=== PATIENT | male | born 1955 | race Caucasian/White ===

== ENCOUNTER → 2016-08-06 | Outpatient (CLI) | payer BC ==
[~2016-08-06] MED LIST: Metoprolol Tartrate 25 MG Tab PO SCH
[2016-08-06 10:43] VITALS: BP 128/86
--- NOTE | 2016-08-06 20:30 | PCM.PRNOTE ---
- Free Text/Narrative Note: Exercise MIBI Indication CP Sestamibi Tc99 25 MCi was given at the peak HR Patient was brought to the stress test lab in postabsorptive state verbal and paper consent was obtained from patient Vital signs at resting state blood pressure of 110/82 with a heart rate of 75 EKG shows afib [address] depression 0.5 mm Maximal heart rate of 170 and target heart rate is 133 Patient reached the target heart rate, completed stage II Darius protocol Peak blood pressure is 122/88 Total exercise time of 4.[address] depression on V4-V6 like 1mm at peak heart rate with occasional PVCs. the test was terminated due to reaching target HR, and ST changes. METS 7 complaining of slight chest pain which was spontaneous resolved Impression Normal hemodynamics, normal chronotropic, poor exercise capacity, equivocal EKG for ischemia Plan Nuclear portion pending
--- NOTE | 2016-08-07 15:49 | NM ---
EXAMINATION: Nuclear medicine myocardial perfusion study with exercise stress test. HISTORY: Hypercholesterolemia. PROCEDURE: Patient exercised according to Darius protocol for 4 minutes and 54 seconds and achieved maximal hear t rate of 170 beats per minute. Adequate exercise. Following intravenous administration of 27.5 mCi of technetium 99m sestamibi, stress SPECT images i ncluding gating imaging was performed. FINDINGS: Stress myocardial SPECT images demonstrates a small area of moderately decreased perfusion at the ap ex and a moderate to large area of mildly decreased perfusion along the inferoseptal wall. Review of gated images demonstrates generalized hypokinesis the left ventricular ejection fraction i s 19 %. The left ventricular chamber size is normal. IMPRESSION: 1. Moderately decreased perfusion at the apex mildly along the inferoseptal wall. Correlation with r est images recommended. 2. Normal ventricular chamber size with: Hypokinesis and an ejection fraction of 19 %.
== END ==
LOC: MW.NM 08:06
PROVIDERS: ATTEND Internal Medicine
DX: E78.00 Pure hypercholesterolemia, unspecified (principal)
CPT/HCPCS: 78451; 93017; A9270; A9500

== ENCOUNTER → 2016-08-15 | Outpatient (CLI) | payer BC ==
--- NOTE | 2016-08-20 11:17 | NM ---
Addendum: Additional imaging was obtained at rest following the administration of 25.3 mCi of Tech 99M labeled sestamibi. FINDINGS/IMPRESSION: The perfusion pattern at rest is similar to the stress imaging. There is no definite evidence of reversible perfusion to suggest myocardial ischemia. However the ejection fraction however is 43% compared to 20% at stress. The TID is also elevated at 1.5. This may suggest underlying multivessel disease. EXAMINATION: Nuclear medicine myocardial perfusion study with exercise stress test. HISTORY: Hypercholesterolemia. PROCEDURE: Patient exercised according to Darius protocol for 4 minutes and 54 seconds and achieved maximal heart rate of 170 beats per minute. Adequate exercise. Following intravenous administration of 27.5 mCi of technetium 99m sestamibi, stress SPECT images including gating imaging was performed. FINDINGS: Stress myocardial SPECT images demonstrates a small area of moderately decreased perfusion at the apex and a moderate to large area of mildly decreased perfusion along the inferoseptal wall. Review of gated images demonstrates generalized hypokinesis the left ventricular ejection fraction is 19 %. The left ventricular chamber size is normal. IMPRESSION: 1. Moderately decreased perfusion at the apex mildly along the inferoseptal wall. Correlation with rest images recommended. 2. Normal ventricular chamber size with: Hypokinesis and an ejection fraction of 19 %. Dictated by: Gilmar Gomes MD 08/07/16 at 1600 , 1505 , 1505 Doc Number: [id number] Copies To: Aamir Last MD; Miguelito Cunha MD~ [facility]
== END ==
LOC: MW.NM 10:41
PROVIDERS: ATTEND Internal Medicine
DX: E78.00 Pure hypercholesterolemia, unspecified (principal)
CPT/HCPCS: 78451; A9500

== ENCOUNTER → 2016-08-20 | Outpatient (CLI) | payer BC ==
[2016-08-20 10:52] LABS: CHLORIDE,CL 106 mmol/L (98-110); SODIUM,NA 140 mmol/L (136-146)
== END ==
LOC: MW.CHIM 09:57
PROVIDERS: ATTEND Internal Medicine
DX: I48.91 Unspecified atrial fibrillation (principal)
CPT/HCPCS: 36415; 80048; 83880; 85025; 85610

== ENCOUNTER 2021-12-17 10:07 | Inpatient (IN) | payer MEDICARE, OTHER ==
[2021-12-17] MEDS ORDERED: Acetaminophen 325 MG Tab PO PRN (10:17)
[2021-12-17] MEDS ORDERED: Sodium Chloride 0.9% 2.5 ML Syringe FLUSH PRN (10:17)
[2021-12-17] MEDS ORDERED: Sodium Chloride 0.9% 10 ML Syringe FLUSH PRN (10:17)
[2021-12-17] MEDS ORDERED: Ondansetron 4 MG/2 ML SDV IVPUSH PRN (10:17)
[2021-12-17] MEDS ORDERED: Docusate Sodium 100 MG Cap PO PRN (10:17)
[2021-12-17] MEDS ORDERED: Magnesium Sulfate/Water 4 GM in Premix Bag 1 BAG IV ONE (11:24)
[2021-12-17] MEDS ORDERED: Potassium Chloride 40 MEQ in Premix Bag 1 BAG IV ONE (11:45)
[2021-12-17] MEDS ORDERED: Azithromycin 250 MG Tab PO ONE (12:22)
[2021-12-17] MEDS ORDERED: Potassium Chloride 20 MEQ Tab.ER PO ONE (12:22)
[2021-12-17] MEDS ORDERED: Rivaroxaban 10 MG Tab PO SCH (17:30)
[2021-12-17] MEDS ORDERED: cefTRIAXone 1 GM in Sodium Chloride 0.9% 50 ML IV SCH (20:00)
[2021-12-17] MEDS: Metoprolol Tartrate 50 MG Tab PO SCH (20:38)
[2021-12-17] MEDS ORDERED: atorvaSTATin 40 MG Tab PO SCH (21:00)
[2021-12-18 06:39] LABS: POTASSIUM,K 3.4 mmol/L (3.5-5.1)
[2021-12-18] MEDS ORDERED: Potassium Chloride 20 MEQ Tab.ER PO ONE (08:05)
[2021-12-18] MEDS ORDERED: Azithromycin 250 MG Tab PO SCH (09:00)
[2021-12-18] MEDS ORDERED: Isosorbide Mononitrate 60 MG Tab.ER PO SCH (09:00)
[2021-12-18] MEDS ORDERED: Rivaroxaban 10 MG Tab PO SCH (09:00)
[2021-12-18] MEDS: Metoprolol Tartrate 50 MG Tab PO SCH (09:12)
[2021-12-18] MEDS ORDERED: Digoxin 125 MCG Tab PO SCH (21:00)
== END 2021-12-18 17:30 | disposition home or self-care (01) | DRG 683 ==
LOC: MW.MS 10:07
PROVIDERS: ADMIT Student in an Organized Health Care Education/Training Program; ATTEND Student in an Organized Health Care Education/Training Program
DX: N17.9 Acute kidney failure, unspecified (principal); I13.0 Hypertensive heart and chronic kidney disease with heart failure and stage 1 through stage 4 chronic kidney disease, or unspecified chronic kidney disease; I48.11 Longstanding persistent atrial fibrillation; I50.22 Chronic systolic (congestive) heart failure; N39.0 Urinary tract infection, site not specified; E83.42 Hypomagnesemia; Z20.822 Contact with and (suspected) exposure to COVID-19; E87.6 Hypokalemia; E78.5 Hyperlipidemia, unspecified; N18.9 Chronic kidney disease, unspecified; E86.0 Dehydration; J40 Bronchitis, not specified as acute or chronic; N40.0 Benign prostatic hyperplasia without lower urinary tract symptoms; Z95.5 Presence of coronary angioplasty implant and graft; F32.A Depression, unspecified; Z79.01 Long term (current) use of anticoagulants; Z79.899 Other long term (current) drug therapy
CPT/HCPCS: 36415; 71046; 71046-26; 80048; 81001; 83735; 84132; 85025; 87086; 97110-GP; 97162-GP; A9270-GY; J0696; J3475; J3480; U0002

== ENCOUNTER 2022-04-20 11:33 | Inpatient (IN) | payer MEDICARE, OTHER ==
[2022-04-20] MEDS ORDERED: Sodium Chloride 0.9% 2.5 ML Syringe FLUSH PRN (11:42)
[2022-04-20] MEDS: Sodium Chloride 0.9% 10 ML Syringe FLUSH PRN (12:40)
[2022-04-20 12:51] LABS: BLOOD UREA NITROGEN,BUN 34 mg/dL (7.0-18.0); CHLORIDE,CL 89 mmol/L (98-107); ESTIMATED GFR 50 mL/min (>60); GLUCOSE RANDOM 123 mg/dL (74-106); LIPASE 116 U/L (73-393); POTASSIUM,K 3.4 mmol/L (3.5-5.1); SODIUM,NA 131 mmol/L (136-148)
[2022-04-20] MEDS ORDERED: Sodium Chloride 0.9% 1,000 ML IV ONE (13:00)
[2022-04-20 14:48] LABS: CORONAVIRUS COVID-19 NAA NEGATIVE (NEGATIVE); INFLUENZA A NAA NEGATIVE (NEGATIVE); INFLUENZA B NAA NEGATIVE (NEGATIVE)
[2022-04-20] MEDS ORDERED: LORazepam 2 MG/ML SDV IVPUSH ONE (14:56)
[2022-04-20] MEDS ORDERED: LORazepam 2 MG/ML SDV IVPUSH PRN (15:03)
[2022-04-20] MEDS: Folic Acid 1 MG/0.2 ML UD Syringe SUBCUT SCH (18:08)
[2022-04-20] MEDS: Thiamine 100 MG in Sodium Chloride 0.9% 100 ML IV SCH (18:25)
[2022-04-20] MEDS: atorvaSTATin 40 MG Tab PO SCH (20:56)
[2022-04-20] MEDS: Tamsulosin 0.4 MG Cap.ER PO SCH (20:56)
[2022-04-20] MEDS: Digoxin 125 MCG Tab PO SCH (20:57)
[2022-04-20] MEDS: Metoprolol Tartrate 50 MG Tab PO SCH (20:57)
[2022-04-20] MEDS ORDERED: Non-Formulary Medication 1 Each (Atorvastatin Calcium [Atorvastatin Calcium] 80 MG Tablet) PO SCH (21:00)
[2022-04-20] MEDS ORDERED: Non-Formulary Medication 1 Each (Metoprolol Tartrate 100 MG Tablet) PO SCH (21:00)
[2022-04-21 08:16] LABS: CARBON DIOXIDE,CO2 31.9 mmol/L (21.0-32.0); POTASSIUM,K 2.8 mmol/L (3.5-5.1)
[2022-04-21] MEDS ORDERED: Rivaroxaban 10 MG Tab PO SCH (09:00)
[2022-04-21] MEDS: Folic Acid 1 MG/0.2 ML UD Syringe SUBCUT SCH (09:16)
[2022-04-21] MEDS: Allopurinol 100 MG Tab PO SCH (09:16)
[2022-04-21] MEDS: Thiamine 200 MG/2 ML MDV IV SCH (09:16)
[2022-04-21] MEDS: Metoprolol Tartrate 50 MG Tab PO SCH ×2 (09:16→20:54)
[2022-04-21] MEDS: Isosorbide Mononitrate 60 MG Tab.ER PO SCH (09:16)
[2022-04-21] MEDS: Sodium Chloride 0.9% 10 ML Syringe FLUSH PRN (09:17)
[2022-04-21] MEDS ORDERED: Acetaminophen 325 MG Tab PO PRN (09:18)
[2022-04-21] MEDS ORDERED: Potassium Chloride 20 MEQ Tab.ER PO ONE (09:39)
[2022-04-21] MEDS ORDERED: Magnesium Sulfate/Water 2 GM/50 ML Premix Bag IV ONE (09:39)
[2022-04-21] MEDS ORDERED: NS with KCl 40mEq 1,000 ML IV ONE (09:45)
[2022-04-21] MEDS ORDERED: Magnesium Sulfate/Water 2 GM in Premix Bag 1 BAG IV ONE (10:00)
[2022-04-21] MEDS: Thiamine 100 MG in Sodium Chloride 0.9% 100 ML IV SCH (11:06)
[2022-04-21 18:35] LABS: CARBON DIOXIDE,CO2 31.3 mmol/L (21.0-32.0); POTASSIUM,K 3.6 mmol/L (3.5-5.1)
[2022-04-21] MEDS: Digoxin 125 MCG Tab PO SCH (20:54)
[2022-04-21] MEDS: atorvaSTATin 40 MG Tab PO SCH (20:55)
[2022-04-21] MEDS: Tamsulosin 0.4 MG Cap.ER PO SCH (20:55)
[2022-04-22 07:12] LABS: CARBON DIOXIDE,CO2 29.2 mmol/L (21.0-32.0); POTASSIUM,K 3.3 mmol/L (3.5-5.1)
[2022-04-22] MEDS: Allopurinol 100 MG Tab PO SCH (08:53)
[2022-04-22] MEDS: Metoprolol Tartrate 50 MG Tab PO SCH (08:53)
[2022-04-22] MEDS: Isosorbide Mononitrate 60 MG Tab.ER PO SCH (08:53)
[2022-04-22] MEDS: Thiamine 200 MG/2 ML MDV IV SCH (08:56)
[2022-04-22] MEDS ORDERED: Potassium Chloride 20 MEQ Tab.ER PO ONE (10:18)
[2022-04-22] MEDS: Folic Acid 1 MG/0.2 ML UD Syringe SUBCUT SCH (11:12)
== END 2022-04-22 17:15 | disposition home or self-care (01) | DRG 683 ==
LOC: MW.ED 11:33 → MW.MS 14:22
PROVIDERS: ADMIT Internal Medicine; ATTEND Internal Medicine
DX: N17.9 Acute kidney failure, unspecified (principal); F10.229 Alcohol dependence with intoxication, unspecified; F10.231 Alcohol dependence with withdrawal delirium; I13.0 Hypertensive heart and chronic kidney disease with heart failure and stage 1 through stage 4 chronic kidney disease, or unspecified chronic kidney disease; I50.22 Chronic systolic (congestive) heart failure; F10.288 Alcohol dependence with other alcohol-induced disorder; I25.10 Atherosclerotic heart disease of native coronary artery without angina pectoris; E86.0 Dehydration; K70.10 Alcoholic hepatitis without ascites; I50.9 Heart failure, unspecified; E78.00 Pure hypercholesterolemia, unspecified; Z20.822 Contact with and (suspected) exposure to COVID-19; I48.91 Unspecified atrial fibrillation; N18.9 Chronic kidney disease, unspecified; N40.0 Benign prostatic hyperplasia without lower urinary tract symptoms; Z79.82 Long term (current) use of aspirin; Z79.899 Other long term (current) drug therapy; Z95.5 Presence of coronary angioplasty implant and graft; Y90.9 Presence of alcohol in blood, level not specified; Z86.718 Personal history of other venous thrombosis and embolism; Z79.01 Long term (current) use of anticoagulants
CPT/HCPCS: 0240U; 36415; 70450; 71045; 76705; 80048; 80053; 80162; 80307; 81001; 83690; 83735; 84100; 84484; 85025; 85610; 85730; 93005; 96360; 99285-25; A9270-GY; J2060; J3411; J3475; J3480; J3490; J7030

== ENCOUNTER 2024-01-09 07:33 | Day surgery (SDC) | payer MEDICARE ==
[2024-01-09] MEDS: Lactated Ringers 1,000 ML IV SCH (08:30)
[2024-01-09] MEDS ORDERED: Lidocaine 2% 5 ML SDV ONE (09:23)
[2024-01-09] MEDS ORDERED: Propofol 200 MG/20 ML SDV ONE ×3 (09:23→10:27)
[2024-01-09] MEDS ORDERED: Phenylephrine HCl In 0.9% NaCl 1 MG/10 ML Syringe ONE (10:08)
[2024-01-09] MEDS ORDERED: Lactated Ringers 1,000 ML IV SCH (11:00)
== END 2024-01-09 11:45 | disposition home or self-care (01) ==
LOC: MW.SDS 07:33
PROVIDERS: ATTEND Surgery
DX: Z12.11 Encounter for screening for malignant neoplasm of colon (principal); R19.5 Other fecal abnormalities; D12.2 Benign neoplasm of ascending colon; D12.5 Benign neoplasm of sigmoid colon; I11.0 Hypertensive heart disease with heart failure; I50.22 Chronic systolic (congestive) heart failure; E78.00 Pure hypercholesterolemia, unspecified; I42.9 Cardiomyopathy, unspecified; I25.10 Atherosclerotic heart disease of native coronary artery without angina pectoris; F32.A Depression, unspecified; Z95.5 Presence of coronary angioplasty implant and graft; Z87.891 Personal history of nicotine dependence; Z79.82 Long term (current) use of aspirin; Z79.01 Long term (current) use of anticoagulants; Z79.899 Other long term (current) drug therapy
CPT/HCPCS: 45380; 45385; J2371; J2704; J7120; 00811; J3490